=== PATIENT | male | born 1965 | race Caucasian/White ===

== ENCOUNTER 2018-05-22 13:57 | Inpatient (IN) | payer OTHER ==
[~2018-05-22] VITALS: Ht 177.8 cm; Wt 99.8 kg
[~2018-05-22 13:57] MED LIST: NO MEDS
--- NOTE | 2018-05-22 13:57 | NUR ---
PT BIBA ALS TO BED 10
[2018-05-22 14:01] VITALS: BP 96/59
--- NOTE | 2018-05-22 14:13 | NUR ---
PATIENT PRESENTS TO ED WITH INTERMITTENT SUBSTERNAL CHEST PRESSURE RADIATING TO BACK X 3 DAYS----WORSEN TODAY EXACERBATED BY ACTIVITY----OXYGEN DEPENDENT 3 L NC, SINGLE LUMEN CENTRAL LINE LEFT CHEST ON A DOBUTAMINE PUMP INFUSION AROUND THE CLOCK. ----RAN OUT OF OXYGEN AT HOME AND STATED DEFIB KICKED 3 DAYS AGO PER PT.DENIES N/V/D; SKIN IS PINK/WARM/DRY; AAOX4 WITH EVEN AND STEADY GAIT; LUNGS CLEAR BL; HR EVEN AND REGULAR; PT DENIES ANY FEVER, OR COUGH AT THIS TIME; PATIENT STATES PAIN OF 5/10 AT THIS TIME; VSS; PATIENT POSITIONED FOR COMFORT; HOB ELEVATED; BEDRAILS UP X2; BED DOWN. ER MD MADE AWARE OF PT STATUS.
[2018-05-22] MEDS ORDERED: NITR0.4T2 SL (14:15)
[2018-05-22] MEDS ORDERED: AMIO100T PO (14:15)
[2018-05-22] MEDS ORDERED: GABA100C PO (14:15)
[2018-05-22] MEDS ORDERED: VITD1000 PO (14:15)
[2018-05-22] MEDS ORDERED: ZAR2.5 PO (14:15)
[2018-05-22] MEDS ORDERED: BUS5 PO (14:15)
[2018-05-22] MEDS ORDERED: POTA20TE15 PO (14:15)
[2018-05-22] MEDS ORDERED: ACET-8386 PO (14:15)
[2018-05-22] MEDS ORDERED: RIVA20TA PO (14:15)
[2018-05-22] MEDS ORDERED: OMEP20TC12 PO (14:15)
--- NOTE | 2018-05-22 14:28 | NUR ---
X-Ray at bedside.
[2018-05-22 14:40] LABS: BASOPHILS # (AUTO) 0.1 K/uL (0.00-0.22); BASOPHILS % (AUTO) 1.3 % (0.0-2.0); EOSINOPHILS # (AUTO) 0.2 K/uL (0-0.4); EOSINOPHILS % (AUTO) 2.7 % (0.0-4.0); HEMATOCRIT 35.1 % (36-52); HEMOGLOBIN 10.5 g/dL (12.0-18.0); LYMPHOCYTES # (AUTO) 0.8 K/uL (2.0-11.5); LYMPHOCYTES % (AUTO) 12.8 % (20.5-51.1); MEAN CORPUSCULAR HEMOGLOBIN 23 pg (27-31); MEAN CORPUSCULAR HGB CONC 30 g/dL (33-37); MEAN CORPUSCULAR VOLUME 76.3 fL (80-94); MONOCYTES # (AUTO) 0.4 K/uL (0.8-1.0); MONOCYTES % (AUTO) 6.3 % (1.7-9.3); NEUTROPHILS % (AUTO) 76.9 % (42.2-75.2); PLATELET COUNT (AUTO) 176 K/uL (140-450); WHITE BLOOD COUNT (AUTO) 6.5 K/uL (4.8-10.8)
[2018-05-22 14:48] LABS: ANION GAP 13.8 (8-16); CARBON DIOXIDE 25.3 mmol/L (21-32); CREATININE 1.9 mg/dL (0.7-1.3); POTASSIUM 5.1 mmol/L (3.5-5.1)
[2018-05-22 14:51] LABS: PROTHROMBIN TIME 22.6 secs (10.8-13.4)
[2018-05-22 14:54] LABS: ALBUMIN 3.4 g/dL (3.4-5.0); TOTAL BILIRUBIN 0.6 mg/dL (0.0-1.0)
[2018-05-22] MEDS ORDERED: HYDROcodone/APAP 10/325 MG 1 TAB TAB PO STA (15:52)
--- NOTE | 2018-05-22 16:00 | NUR ---
SPOKE WITH PT---PT GROWING UPSET AND WANTED TO LEAVE AMA PT AGREED TO STAY FOR FURTHER TREATMENT---PT AWARE OF ABNORMAL LAB VALUES PROVIDED PT WITH ICE REQUESTED BY HIM
[2018-05-22] MEDS ORDERED: NACL 0.9% 1,000 ML IV SCH (16:35)
[2018-05-22] MEDS ORDERED: ONDANSETRON 4 MG/2 ML VIAL IM/IVP PRN (16:35)
[2018-05-22] MEDS ORDERED: HYDROcodone/APAP 5/325 MG 1 TAB TAB PO PRN (16:35)
[2018-05-22] MEDS ORDERED: ACETAMINOPHEN 325 MG TAB PO PRN (16:35)
[2018-05-22] MEDS ORDERED: LORazepam 2 MG/ML VIAL IM/IVP PRN (16:35)
[2018-05-22] MEDS ORDERED: DOCUSATE SODIUM 100 MG GELCAP PO PRN (16:35)
[2018-05-22] MEDS ORDERED: ZOLPIDEM 5 MG TAB PO PRN (16:35)
[2018-05-22] MEDS ORDERED: MORPHINE SULFATE 2 MG/ML SYR IVP PRN (17:15)
[2018-05-22 17:20] LABS: APPEARANCE,URINE CLEAR (CLEAR); BILIRUBIN,URINE NEGATIVE (NEGATIVE); BLOOD, URINE NEGATIVE (NEGATIVE); COLOR,URINE YELLOW (YELLOW); LEUKOCYTE ESTERASE ,URINE NEGATIVE (NEGATIVE); NITRITE, URINE NEGATIVE (NEGATIVE); UGLUCOSE NEGATIVE (NEGATIVE)
[2018-05-22] MEDS ORDERED: ALBUTEROL SULFATE/IPRATROPIU 3 ML SOL IH PRN (17:20)
--- NOTE | 2018-05-22 17:25 | NUR ---
RECEIVED PATIENT FROM ED. AAO X 4. SKIN IS INTACT. ON 2L NC. HEART RHYTHM IS 100% PACED. PATIENT HAS DOBUTAMINE CONTINUOUSLY RUNNING THROUGH CENTRAL LINE ON LEFT ANTERIOR CHEST, SINGLE LUMEN. LUNGS CTA/SLIGHTLY COARSE IN ALL GARCIA. NO EDEMA NOTED. WILL OBTAIN IV ACCESS. PATIENT IS SLIGHTLY DIAPHORETIC. PATIENT COMPLAINING OF CHEST PAIN. 05/25. WILL ADMINISTER MORPHINE PER MD ORDERS. ALL SAFETY MEASURES IN PLACE. WILL CONTINUE TO MONITOR.
[2018-05-22 17:32] LABS: BARBITURATE, URINE NEG. ng/ml (NEG <=200); BENZODIAZEPINE, URINE NEG. ng/mL (NEG <=200); CANNABINOID, URINE NEG. ng/mL (NEG <=50); COCAINE, URINE NEG. ng/mL (NEG <=300); OPIATE, URINE POS. ng/mL (NEG <=2000); PHENCYCLIDINE SCREEN,URINE NEG. ng/mL (NEG <=25)
--- NOTE | 2018-05-22 17:37 | NUR ---
Pt report given to CHRISTAL CLEMENTS. Transfer of care at this time TO TELE ROOM 106/B
[2018-05-22] MEDS ORDERED: NITROGLYCERIN 0.4 MG TAB SL PRN (17:50)
[2018-05-22] MEDS ORDERED: MORPHINE SULFATE 2 MG/ML SYR ONE (18:41)
[2018-05-22 18:54] VITALS: BP 93/69
[2018-05-22 19:02] LABS: FREE T4 (FREE THYROXINE) 1.64 ng/dL (0.76-1.46); MAGNESIUM 2.2 mg/dL (1.8-2.4); PHOSPHORUS 4.4 mg/dL (2.5-4.9); THYROID STIMULATING HORMONE 1.3 uIU/mL (0.34-3.74)
--- NOTE | 2018-05-22 19:25 | NUR ---
GAVE REPORT TO SURGICAL NURSE PRACTITIONER RN FOR CONTINUITY OF CARE. PATIENT IS IN STABLE CONDITION.
--- NOTE | 2018-05-22 19:26 | NUR ---
RECEIVED REPORT ON PT FROM AM NURSE, PT IS ON TELE MONITOR.-100% PACED. AWAKE,ALERT AND ORIENTED X4. PT IS COOL AND CLAMMY ,PERSPIRING . HE SAID BECAUSE OF PAIN. JUST MEDICATED FOR PAIN BY AM NURSE. . IV ACCESS ON THE LT HAND G#22. VITAL SIGNS TAKEN. LATEST BP100/65, VA- 109,R-22,TEMP-97.1, O2 SAT 95% ON O22L/NC. PLAN OF CARE DISCUSSED AND VERBALIZED UNDERSTANDING. CALL LIGHT AND URINAL WITHIN EASY REACH. WILL CONTINUE TO MONITOR.
[2018-05-22 19:45] VITALS: BP 100/65
[2018-05-22] MEDS: FUROSEMIDE 40 MG/4 ML VIAL IVP SCH (19:45)
--- NOTE | 2018-05-22 19:50 | NUR ---
PT STILL COLD AND CLAMMY, PERSPIRING AND HE SAID HE DOESN'T FEEL GOOD. PAGED DR. CASTELLANOS . MADE HIM AWARE. CAME AND CHECKED ON PT. STILL NEED TO GIVE LASIX ,BUT IV ACCIDENTALLY PULLED OUT. TO REORDER LASIX X1.
[2018-05-22] MEDS ORDERED: FUROSEMIDE 20 MG/2 ML VIAL IVP SCH (20:00)
--- NOTE | 2018-05-22 20:00 | NUR ---
UNABLE TO START IV ACCESS .ER NURSE CAME TO TRY TO START IV ACCESS.
[2018-05-22] MEDS: ATORVASTATIN 20 MG TAB PO SCH (20:02)
[2018-05-22] MEDS: busPIRone 5 MG TAB PO SCH (20:03)
[2018-05-22] MEDS: METOPROLOL 25 MG TAB PO SCH (20:07)
[2018-05-22] MEDS: ALBUTEROL SULFATE/IPRATROPIU 3 ML SOL IH SCH (20:25)
--- NOTE | 2018-05-22 20:33 | NUR ---
LASIX 20 MG IVP GIVEN ORDERED ON IV LT FA G 18 THAT ER NURSE STARTED. BUT NEED TO START A NEW ONE ON RT HAND G#22 FOR THE PREVIOUS ONE NOT GOOD ENOUGH.
[2018-05-22] MEDS ORDERED: POTASSIUM CHLORIDE 40 MEQ PO SCH (21:00)
[2018-05-22 21:08] VITALS: BP 94/53
--- NOTE | 2018-05-22 22:32 | NUR ---
PT C/O INDIGESTION. INFORMED .
--- NOTE | 2018-05-22 23:45 | NUR ---
DR. CAICEDO,RESIDENT MADE AWARE THAT PT HAS HX; SLEEP APNEA AND HAS MACHINE AT HOME THAT HE USED AT NIGHT.
[2018-05-22 23:48] VITALS: BP 99/61
[2018-05-23] MEDS ORDERED: ALBUMIN HUMAN 25% 100 ML IV SCH
--- NOTE | 2018-05-23 01:33 | NUR ---
PT ASLEEP IN BED. NO S/SX OF DISTRESS. WILL CONTINUE TO MONITOR.
--- NOTE | 2018-05-23 03:27 | NUR ---
PT ASLEEP IN BED. NO SIGNS OF DISTRESS. WILL CONTINUE TO MONITOR.
[2018-05-23 04:00] VITALS: BP 98/58
--- NOTE | 2018-05-23 05:20 | NUR ---
NO CHANGE IN CONDITION. PT IS STABLE, ALL NEEDS ARE MET AT THIS TIME. WILL CONTINUE TO MONITOR.
--- NOTE | 2018-05-23 06:11 | NUR ---
CALLED [facility] TO GET MEDICAL RECORDS FAX # BUT DIRECTOR OF NEIGHBORHOOD SERVICE C[facility] JUST GAVE THE #OFFICE [phone] . DIRECTOR OF [facility]HB[facility]ICE [facility] SAID THE OFFICE IS CLOSED AND WILL OPEN [place]. WILL ENDORSE TO AM NURSE.
--- NOTE | 2018-05-23 07:05 | NUR ---
ENDORSED PT TO DAY SHIFT NURSE FOR CONTINUITY OF CARE. PT IN STABLE CONDITION.
--- NOTE | 2018-05-23 07:07 | NUR ---
RECEIVED REPORT FROM HISTORY TUTOR RN. PATIENT IS IN STABLE CONDITION. AAO X4. COMPLAINING OF TOLERABLE PAIN IN LOWER BACK. HEART RHYTHM IS REGULAR. LUNGS CTA IN ALL GARCIA. SATURATING WELL ON 4L NC. NO EDEMA NOTED. BOWEL SOUNDS PRESENT IN ALL QUADRANTS. PT HAS CONTINUOUS DOPAMINE INFUSING THROUGH SINGLE LUMEN CENTRAL LINE ON LEFT CHEST. IV SITE INFILTRATED, WILL INSERT NEW IV. ALL SAFETY MEASURES IN PLACE. WILL CONTINUE TO MONITOR PT.
[2018-05-23] MEDS: ALBUTEROL SULFATE/IPRATROPIU 3 ML SOL IH SCH ×3 (07:15→19:53)
[2018-05-23 08:00] VITALS: BP 97/56
[2018-05-23] MEDS ORDERED: VITAMIN D 400 IU TAB PO SCH (09:00)
[2018-05-23] MEDS ORDERED: AMIODARONE 200 MG TAB PO SCH (09:00)
[2018-05-23] MEDS ORDERED: PANTOPRAZOLE 40 MG TABEC PO SCH ×3 (09:00)
[2018-05-23] MEDS: METOPROLOL 25 MG TAB PO SCH ×2 (09:00→20:55)
[2018-05-23] MEDS ORDERED: NON-FORMULARY ITEM (Omeprazole (Omeprazole) 40 MG) PO SCH (09:00)
[2018-05-23] MEDS ORDERED: AMIODARONE HCL 100 MG PO SCH (09:00)
[2018-05-23] MEDS ORDERED: LISINOPRIL 5 MG TAB PO SCH (09:00)
[2018-05-23] MEDS ORDERED: ASPIRIN 81 MG TAB.CHEW PO SCH (09:00)
[2018-05-23 09:15] LABS: BASOPHILS % (AUTO) 0.5 % (0.0-2.0); EOSINOPHILS % (AUTO) 0.4 % (0.0-4.0); HEMATOCRIT 34.6 % (36-52); HEMOGLOBIN 10.6 g/dL (12.0-18.0); LYMPHOCYTES # (AUTO) 0.3 K/uL (2.0-11.5); MEAN CORPUSCULAR HEMOGLOBIN 23 pg (27-31); MEAN CORPUSCULAR HGB CONC 31 g/dL (33-37); MEAN CORPUSCULAR VOLUME 75.7 fL (80-94); MONOCYTES # (AUTO) 0.3 K/uL (0.8-1.0); MONOCYTES % (AUTO) 3.2 % (1.7-9.3); NEUTROPHILS # (AUTO) 8.1 K/uL (1.8-7.7); PLATELET COUNT (AUTO) 176 K/uL (140-450); RED BLOOD CELL COUNT(AUTO) 4.57 MIL/uL (4.20-6.10); RED CELL DISTRIBUTION WIDTH 20.3 % (11.6-13.7); WHITE BLOOD COUNT (AUTO) 8.8 K/uL (4.8-10.8)
[2018-05-23] MEDS: busPIRone 5 MG TAB PO SCH (09:41)
[2018-05-23] MEDS: GABAPENTIN 100 MG CAP PO SCH ×3 (09:42→16:39)
--- NOTE | 2018-05-23 09:42 | NUR ---
SCHEDULED MEDICATIONS GIVEN AT THIS TIME. PATIENT IS IN STABLE CONDITION. WILL CONTINUE TO MONITOR.
[2018-05-23 10:07] LABS: ANION GAP 15.3 (8-16); CREATININE 1.9 mg/dL (0.7-1.3); POTASSIUM 4.3 mmol/L (3.5-5.1)
[2018-05-23 10:18] LABS: MAGNESIUM 1.8 mg/dL (1.8-2.4); PHOSPHORUS 4.1 mg/dL (2.5-4.9)
[2018-05-23 10:22] LABS: CHOL/HDL RATIO 4.2 (1-4.5)
--- NOTE | 2018-05-23 10:34 | NUR ---
PATIENT COMPLAINING OF CONSTIPATION AND STRAINING DURING BOWEL MOVEMENTS. PT STATES COLACE IS INEFFECTIVE. MD MADE AWARE. WILL CONTINUE TO MONITOR.
[2018-05-23 11:02] LABS: LYMPHOCYTES % (AUTO) 3.4 % (20.5-51.1); NEUTROPHILS % (AUTO) 92.5 % (42.2-75.2)
[2018-05-23] MEDS: FUROSEMIDE 40 MG/4 ML VIAL IVP SCH (11:12)
[2018-05-23 12:00] VITALS: BP 100/63
--- NOTE | 2018-05-23 12:41 | NUR ---
SCHEDULED MEDICATION ADMINISTERED PER MD ORDERS. PATIENT IS RESTING IN BED, WATCHING TV. COMPLAINING OF SOME BACK PAIN. WILL APPLY K-PAD WHEN AVAILABLE.
[2018-05-23] MEDS ORDERED: BISACODYL 10 MG SUPP RC SCH (13:25)
[2018-05-23] MEDS ORDERED: SODIUM PHOSPHATE 118 ML ENEM RC PRN (13:25)
[2018-05-23] MEDS ORDERED: COMMUNICATION ORDER MC SCH (13:35)
--- NOTE | 2018-05-23 14:29 | NUR ---
K-PAD APPLIED FOR BACK PAIN. SUPPOSITORY ADMINISTERED PER MD ORDERS. WILL CONTINUE TO MONITOR.
[2018-05-23] MEDS ORDERED: HYDROcodone/APAP 10/325 MG 1 TAB TAB PO PRN (15:00)
--- NOTE | 2018-05-23 15:15 | NUR ---
PATIENT HAD SMALL BM. WILL SEND OCCULT STOOL SAMPLES TO LAB.
[2018-05-23 16:00] VITALS: BP 102/60
--- NOTE | 2018-05-23 16:39 | NUR ---
SCHEDULED MEDICATIONS GIVEN PER MD ORDERS. PATIENT IS SLEEPING IN BED, NO COMPLAINTS OF PAIN. AROUSABLE BY VOICE. WILL CONTINUE TO MONITOR.
[2018-05-23] MEDS ORDERED: RIVAROXABAN 10 MG TAB PO SCH (17:30)
--- NOTE | 2018-05-23 18:43 | NUR ---
PATIENT COMPLAINING OF 6/10 BACK PAIN. ADMINISTERED NORCO PER MD ORDERS. WILL CONTINUE TO MONITOR.
--- NOTE | 2018-05-23 19:29 | NUR ---
ENDORSED PLAN OF CARE TO SALES ACCOUNT MANAGER RN. PATIENT IS IN STABLE CONDITION.
--- NOTE | 2018-05-23 19:30 | NUR ---
RECEIVED REPORT AT BEDSIDE FOR CONTINUITY OF CARE. PT AAOX4. PT HAS SOB AND TROUBLE BREATHING ALSO COMPLAINTS OF PAIN AND IS REQUESTING FLEXERIL AND DEPRESSION MED. RT CAME IN AND WAS AWARE HE NEEDS TO BE ON BIPAP. PT HAD CHF AND WAS ON 4L NC BUT SWITCH TO CPAP. IV NOTED L WRIST 22G SALINE LOCK. HAS LEFT UPPER CHEST ICD INFUSING DOBUTAMINE. EXPECTED TO RUN OUT AT 1145 SO ENDORSE TO MORNING SHIFT. PT ALSO HAS KPAD FOR BACK PAIN. PLAN OF SOCIAL SERVICE IS TO TRANSFER TO [place]. BED LOWERED CALL LIGHT WITHIN REACH WILL CONTINUE TO MONITOR.
--- NOTE | 2018-05-23 19:50 | NUR ---
PT FOUND IN DISTRESS C/O PAIN AND DISCOMFORT, O2 DESATURATED INTO 70'S, PT PLACED ON CPAP WITH CPAP NOC HOME ORDER, PT SHOWED RELIEF AND O2 SAT BACK TO 92%, BESSIE CLEMENTS AND DR CASTELLANOS AWARE, WILL CONT TO MONITOR.
[2018-05-23] MEDS ORDERED: CYCLOBENZAPRINE 10 MG TAB PO SCH (19:55)
[2018-05-23 20:00] VITALS: BP 86/49
[2018-05-23] MEDS ORDERED: CYCLOBENZAPRINE 10 MG TAB PO PRN (20:32)
[2018-05-23] MEDS: ATORVASTATIN 20 MG TAB PO SCH (20:54)
[2018-05-23] MEDS ORDERED: busPIRone 5 MG TAB PO SCH (21:00)
[2018-05-23] MEDS ORDERED: POTASSIUM CHLORIDE 10 MEQ TABER PO SCH (21:00)
--- NOTE | 2018-05-23 23:27 | NUR ---
PT COMPLAINING OF DRY MOUTH, TRIED PT IN BIPAP MODE, PT STATED HE WAS UNCOMFORTABLE AND DID NOT TOLERATE, MENTIONED THAT HOME CPAP WOULD ADJUST IN LEVELS, HOSPITAL CPAP DOES NOT HAVE THOSE CAPABILITIES, PT BACK ON CPAP MODE, WILL CONT TO MONITOR.
[2018-05-24] VITALS: BP 85/61
--- NOTE | 2018-05-24 01:20 | NUR ---
PT REQUEST TO HAVE CPAP LEVELS CHANGED SAID HE IS DONT FEELING WELL CALLED RT. RT AT BEDSIDE.
--- NOTE | 2018-05-24 01:44 | NUR ---
PT SLEEPING NO SOB NO S/S OF DISTRESS WILL CONTINUE TO MONITOR.
[2018-05-24 04:00] VITALS: BP 93/63
[2018-05-24] MEDS: ALBUTEROL SULFATE/IPRATROPIU 3 ML SOL IH SCH (06:35)
--- NOTE | 2018-05-24 06:35 | NUR ---
REC'D PT ON VISION BIPAP SETTINGS 10/2 RR12 FIO2 40% ALARMS ON AND AUDIBLE AND AMBU BAG AT SIDE OF BIPAP AND BIPAP IS PLUGGED INTO REDOUT, I\L TX GIVEN WITH DUONEB 3ML WITH NO ADVERSE REACTION POST TX B\S CLEAR AND DIMINISHED BILATERALLY, PT IS REALLY AGITATED WITH STAFF CALLING NAMES KEEPS TAKING MASK OFF STATING HE CANT BREATH I KEEP ASKIN HIM TO PUT MASK BACK ON AND HE THREW MASK AT RT HITTING RT KNAPP IN CHEST WITH MASK..
[2018-05-24 07:09] LABS: BASOPHILS % (AUTO) 0.3 % (0.0-2.0); EOSINOPHILS % (AUTO) 0.2 % (0.0-4.0); HEMOGLOBIN 11.3 g/dL (12.0-18.0); LYMPHOCYTES # (AUTO) 0.4 K/uL (2.0-11.5); LYMPHOCYTES % (AUTO) 3.4 % (20.5-51.1); MEAN CORPUSCULAR HEMOGLOBIN 23 pg (27-31); MEAN CORPUSCULAR HGB CONC 31 g/dL (33-37); MEAN CORPUSCULAR VOLUME 76.4 fL (80-94); MONOCYTES # (AUTO) 0.4 K/uL (0.8-1.0); MONOCYTES % (AUTO) 3.4 % (1.7-9.3); NEUTROPHILS # (AUTO) 11.4 K/uL (1.8-7.7); NEUTROPHILS % (AUTO) 92.7 % (42.2-75.2); PLATELET COUNT (AUTO) 194 K/uL (140-450); RED BLOOD CELL COUNT(AUTO) 4.84 MIL/uL (4.20-6.10); WHITE BLOOD COUNT (AUTO) 12.3 K/uL (4.8-10.8)
--- NOTE | 2018-05-24 07:24 | NUR ---
CHECKED PT BEFORE SHIFT CHANGE, PT C/O SHORTNESS OF BREATH, O2 SATS BETWEEN 88-90%, CALLED RT, PT TOOK OFF MASK, EXPLAINED TO PT THIS IS GOOD FOR HIS O2 SATURATION. PT YELLING TO ME AND RT AND THROWING MASK TO US.
--- NOTE | 2018-05-24 07:24 | NUR ---
CALLED BACK TO ROOM TO CHECK PT. PT STATES HE IS IN PAIN YELLING AT STAFF ONCE AGAIN THROWING MASK AT RT STARR HILARIO IN ROOM AT THIS TIME.
--- NOTE | 2018-05-24 07:33 | NUR ---
ENDORSED REPORT TO DAYSHIFT NURSE AT BEDSIDE FOR CONTINUITY OF CARE.
--- NOTE | 2018-05-24 07:35 | NUR ---
RECEIVED REPORT FROM BESSIE, MONITOR SHOWS PACED RHYTHM 120S, AWAKE, ALERT,AGITATED. ABLE TO FOLLOW COMMANDS.PT ON BIPAP, C/O SHORTNESS OF BREATH, PT TOOK OFF MASK AT TIMES. PT HAS PACE MAKER TO RIGHT UPPER CHEST. PT ALSO HAS ONE SINGLE LUMEN CATH TO LEFT CHEST RUNNING DOBUTAMINE, PER BESSIE DOBUTAMINE IS PT SELF -CONTROL HOME MEDICATION. PT ALSO HAS IV TO LEFT FOREARM. PT C/O PAIN TO LOWER BACK, COMFORTED PT TO GIVE HIM PAIN MEDICATION. PT STATED " DON'T GIVE ME FUCKING NORCO, I NEED STRONGER MEDICATION" GENERALIZED WEAKNESS NOTED, VITALS CHECKED BP 85/49, HR 125, PACED RHYTHM, O2 SATS 92%, RR 30, HOB ELEVATED 30 DEGREES WITH LOW BED POSITION. WILL NOTIFY MD FOR PAIN MEDICATION AND VITALS.
--- NOTE | 2018-05-24 07:38 | NUR ---
CALLED RESIDENT CELLPHONE, ANSWERED, NOTIFIED HIM PT VITALS AND TOLD HIM PT NEEDS PAIN MEDICATION BUT PT DOES NOT WANT NORCO, PT NEEDS STRONGER MEDICATION.
[2018-05-24] MEDS ORDERED: MAGNESIUM OXIDE 400 MG TAB PO ONE (07:40)
--- NOTE | 2018-05-24 07:45 | NUR ---
WENT IN TO PT'S ROOM AND TOLD PT " I CALLED DOCTOR FOR PAIN MEDICATION ALREADY". RECHECKED VITALS SHOWS BP 75/31, HR 120S, O2 SATS 90%, NOTIFIED [facility] MARIYA HINES AND CHARGE NURSE ZAC. FLORA CAME TO BEDSIDE AND STATED SHE WILL NOTIFY DOCTOR.
[2018-05-24 07:56] LABS: ANION GAP 16.2 (8-16); CARBON DIOXIDE 24.8 mmol/L (21-32); CREATININE 2.3 mg/dL (0.7-1.3)
--- NOTE | 2018-05-24 07:56 | NUR ---
DR. RIBEIRO IN TO ASSESS PT, RECHECKED VITALS BP 94/31, HR 120, O2 SATS 92%, PER DR. RIBEIRO, PT WILL BE TRANSFERRED TO ICU FOR CLOSE MONITORING.
[2018-05-24] MEDS ORDERED: NACL 0.9% 500 ML IV SCH (08:00)
[2018-05-24 08:01] LABS: PROTHROMBIN TIME 33.9 secs (10.8-13.4)
[2018-05-24] MEDS ORDERED: NACL 0.9% 500 ML IV ONE (08:05)
[2018-05-24] MEDS ORDERED: MORPHINE SULFATE 2 MG/ML SYR IVP SCH (08:15)
--- NOTE | 2018-05-24 08:15 | NUR ---
INFORMED PT THAT HE WILL BE TRANSFERRED TO ICU ROOM 3 FOR CLOSE MONITORING. PT VERBALIZED UNDERSTANDING. PT ALERT AT THIS TIME AND WAS ABLE TO CALL AND TALKED TO ONE OF HIS FAMILY MEMBER OVER THE PHONE THAT HE WILL BE TRANSFERRED TO ICU.
--- NOTE | 2018-05-24 08:20 | NUR ---
TRANSFERRED PT TO ICU BED 3, ACCOMPANIED BY RT, CHARGE NURSE. REPORT GIVEN TO CEDRIC CLEMENTS. PT BP 102/57, HR 125. O2 SATS 91%.
--- NOTE | 2018-05-24 08:20 | NUR ---
RECEIVED PT FROM [facility], OBTAINED REPORT FROM STARR HILARIO AT BEDSIDE, PT IS AAOX4, ABLE TO FOLLOW COMMANDS AND MAKE NEEDS KNOWN, SOB AND LABORED BREATHING NOTED, HYPERVENTILATED AND RESTLESSNESS, RT AT BEDSIDE, STATED GENERALIZED PAIN, 08/25. BP 102/57, HR 122, RR 48, O2 SAT 90%, TEMP 97.0F, PACEMAKER TO RIGHT UPPER CHEST NOTED, PORT CATH TO LEFT CHEST NOTED AND RUNNING DOPAMINE WITH PUMP AT 5MCG/KG/MIN. INCONTINENT WITH B&B'S, GENERALIZED WEAKNESS TO ALL EXTREMITIES NOTED, IV SITE TO LEFT FOREARM, OCCLUDED. HOB ELEVATED, SAFETY MEASURE IN PLACE, CALL LIGHT WITHIN REACH, WILL CONTINUE TO MONITOR.
--- NOTE | 2018-05-24 08:20 | NUR ---
PT TRANSFERRED TO ICU 3 THEN PLACED BACK ON BIPAP AND ABG WAS DRAWN ON RR BY FAVOR MAKER Penelope CAVANAUGH PT IS STILL VERY AGITATED PULLING BIPAP MASK OFF, RT ARIA KEEPS REPLACING THE MASK ASKIN PT TO PLEASE KEEP MASK AND ABG RESULTS WERE GIVEN TO WITH CHANGES MADE TO BIPAP. NEW SETTING 14\6 RR 10 ITIME 1:2 RISE TIME 0.4, NOT ABDIFATAH RICARDO AT BESIDE INSERTING CENTRAL LINE IN PT.
--- NOTE | 2018-05-24 08:48 | NUR ---
V TACH NOTED ON THE MONITOR. BP 102/57. IN 127. RR 46. [address] VELA AND GROUP ROUNDING ON THE PATIENT, AWARE OF V TACH EPISODES.
[2018-05-24] MEDS ORDERED: PATIENTS OWN INJECTABLE IV SCH (09:00)
[2018-05-24] MEDS ORDERED: MAGNESIUM OXIDE 400 MG TAB PO SCH (09:00)
[2018-05-24] MEDS ORDERED: METOLAZONE 2.5 MG TAB PO SCH (09:00)
--- NOTE | 2018-05-24 09:00 | NUR ---
DR. ZHAO FROM ED CAME AND SEEN PATIENT.
--- NOTE | 2018-05-24 09:15 | NUR ---
DR. Joaquina STERLING IN, SEEN PATIENT. WILL FOLLOW UP WITH NEW ORDERS.
[2018-05-24] MEDS ORDERED: LORazepam 2 MG/ML VIAL ONE ×2 (09:30→09:53)
[2018-05-24] MEDS ORDERED: LORazepam 2 MG/ML VIAL IM SCH (09:30)
[2018-05-24] MEDS ORDERED: AMIODARONE 150 MG in DEXTROSE 5% 100 ML IV SCH (09:30)
--- NOTE | 2018-05-24 09:30 | NUR ---
CONSENT FOR CENTRAL LINE SIGNED BY THE PATIENT HIMSELF
--- NOTE | 2018-05-24 09:36 | NUR ---
CM NOTE RECEIVED ORDER TO TRANSFER TO [facility] FOR HIGHER LEVEL OF CARE. FAXED PACKET TO [facility] [phone] # [phone] INCLUDING THE NUMBER TO OUR NURSING STATION WHERE PATIENT IS AND OUR DR'S NUMBER FOR DOCTOR TO DOCTOR REPORT IF NEEDED. DR. BOOKER AND CEDRIC CLEMENTS AWARE.
[2018-05-24 09:37] LABS: MAGNESIUM 1.7 mg/dL (1.8-2.4); PHOSPHORUS 4.3 mg/dL (2.5-4.9)
--- NOTE | 2018-05-24 09:45 | NUR ---
RESIDENT PHYSICIANS, DR. MAN AND DR. BOOKER AT BEDSIDE PREPARING TO PLACE A RIGHT IJ CENTRAL LINE.
--- NOTE | 2018-05-24 09:47 | NUR ---
BIPAP CHECK, PT IS STILL VERY AGITATED TAKING MASK OFF YELLING HE CANT BREATH DR. RICARDO AT BEDSIDE TRYING TO INSERT CENTRAL LINE
[2018-05-24] MEDS ORDERED: LORazepam 2 MG/ML VIAL IM/IVP SCH (10:00)
[2018-05-24] MEDS ORDERED: AMIODARONE 450 MG in DEXTROSE 5% 250 ML IV SCH (10:00)
--- NOTE | 2018-05-24 10:00 | NUR ---
ATIVAN 1 MG IM GIVEN ORDERED. WASTED 1 MG, WITNESSED BY STARR COLLADO.
--- NOTE | 2018-05-24 10:05 | NUR ---
BRADYCARDIA NOTED ON MONITOR. NO PULSE PALPATED. NO PULSE PER DOPPLER NOTED WELL. CODE BLUE CALLED.
--- NOTE | 2018-05-24 10:08 | NUR ---
CALLED TO ICU 3 FOR CODE BLUE CPR AND ALCS DRUGS WERE GIVEN, AT 1013 SAL SHERMAN FROM ER INTUBATED PT WITH 7.0 ET TUBE SECURED WITH ANCHOR FAST AT 22 CM MIDLINE CPR AND ACLS STILL BEING GIVEN AT 1031 DR. SELLERS ENDED THE CODE
--- NOTE | 2018-05-24 10:15 | NUR ---
PT'S FAMILY NOTIFIED PT'S CONDITION, DR. SELLERS SPOKE TO THE ON THE PHONE.
--- NOTE | 2018-05-24 10:19 | NUR ---
PATIENT HAS BEEN SCREENED AND CATEGORIZED MODERATE NUTRITION RISK. PATIENT WILL BE SEEN WITHIN 3-5 DAYS OF ADMISSION. 05/26/18 05/28/[address]
--- NOTE | 2018-05-24 10:31 | NUR ---
DR. SELLERS PRONOUNCED AT 1031 DUE TO CARDIAC ARREST. Addendum: 05/24/18 at 1314 by Dalila Monzon RN ER DR. HUANG AT BEDSIDE AGREED. Addendum: 05/24/18 at 1315 by Dalila Monzon RN DR. VELA NOTIFIED THE OF PATIENT, FRAMING CARPENTER AT BEDSIDE.
--- NOTE | 2018-05-24 11:00 | NUR ---
PT'S AND FAMILY MEMBERS CAME IN, DR. SELLERS AND DR. RICARDO EXPLAINED THE REASON OF THE . PT'S VERBALIZED UNDERSTANDING.
--- NOTE | 2018-05-24 11:15 | NUR ---
Pipe Jeeper Notes: I meet with Patient's Paty Clifford at bedside. Patient's is kinyarwanda speaking only. I comfort Patient's and provided her with resources and information about dealing with the loss of a love one, as well a lis to counseling services around her area and at last a mortuary list. I discuss in detail about the process and limitations with time to make arrangements, she stated that she did not had anything prepare and will be meeting with patient's family to go about the arrangements for his and services. Patient's stated that she will be making some calls to the family and mortuary's to get information and will be returning with patient's family to finalized plans and sign forms to release the body to mortuary of their choice. She thanked me for the assistance and left the hospital to talk to patient's side of the family.
--- NOTE | 2018-05-24 11:30 | NUR ---
[facility] CALLED BACK WITH CASE #[id number], SPOKED TO CHAD GOLD THAT PT WILL BE ON [employer]'[facility] CASE.
--- NOTE | 2018-05-24 12:00 | NUR ---
SPOKE TO PT'S ABOUT THE MORTUARY, SHE SAID WILL LET US KNOW LILIA.
--- NOTE | 2018-05-24 12:35 | NUR ---
SPOKED TO AUTO BODY REPAIR ESTIMATOR, MELBA SANDERSON, PT'S BODY RELEASED BY AUTO BODY REPAIR ESTIMATOR, CASE # [id number].
--- NOTE | 2018-05-24 13:35 | NUR ---
Patient Registration Clerk Notes: I met with patient's brother and Paty and discuss patient's mortuary of their choice. Patient's stated that she has already discuss and decided to have Patient's brother [facility] of Choice in [facility] to come and scrap picker Patient's body and that she will be signing the forms to release patient and family will be gathering to discuss all arrangements tomorrow 05/25/18 at 11:00am in the mortuary. I thanked her for the information and direct them to ICU Nurse to sign all documentation needed. She thanked me again for the assistance.
--- NOTE | 2018-05-24 16:00 | NUR ---
PT'S GAVE SIGNED THE BODY RELEASE FORM, AND GAVE US THE MORTUARY NAME AND NUMBER.
--- NOTE | 2018-05-24 16:20 | NUR ---
INFORMED [facility] TO METAL HANDLER THE DECEDENT.
--- NOTE | 2018-05-24 16:47 | NUR ---
THE [facility] PICKED UP BY [facility]
[2018-05-25 06:21] LABS: FOLIC ACID 12.2 ng/mL (>3.0)
[2018-05-25 15:14] LABS: T4 (THYROXINE) 10.2 ug/dL (4.5-12.0)
== END 2018-05-24 16:47 | disposition expired | DRG 205 ==
LOC: MED 13:57 → MTU 16:35 → MIC 05-24 08:59
PROVIDERS: ADMIT General Practice; ATTEND General Practice
PROC: 5A09357 Assistance with Respiratory Ventilation, Less than 24 Consecutive Hours, Continuous Positive Airway Pressure (ICD-10-PCS; principal; 2018-05-23)
PROC: 5A12012 Performance of Cardiac Output, Single, Manual (ICD-10-PCS; 2018-05-24)
PROC: 0BH17EZ Insertion of Endotracheal Airway into Trachea, Via Natural or Artificial Opening (ICD-10-PCS; 2018-05-24)
DX: M94.0 Chondrocostal junction syndrome [Tietze] (principal); I50.43 Acute on chronic combined systolic (congestive) and diastolic (congestive) heart failure; N17.0 Acute kidney failure with tubular necrosis; J96.20 Acute and chronic respiratory failure, unspecified whether with hypoxia or hypercapnia; I13.0 Hypertensive heart and chronic kidney disease with heart failure and stage 1 through stage 4 chronic kidney disease, or unspecified chronic kidney disease; E87.1 Hypo-osmolality and hyponatremia; D68.59 Other primary thrombophilia; I42.9 Cardiomyopathy, unspecified; I46.9 Cardiac arrest, cause unspecified; K21.9 Gastro-esophageal reflux disease without esophagitis; Z99.81 Dependence on supplemental oxygen; G62.9 Polyneuropathy, unspecified; I95.9 Hypotension, unspecified; E87.5 Hyperkalemia; D64.9 Anemia, unspecified; J44.9 Chronic obstructive pulmonary disease, unspecified; H44.9 Unspecified disorder of globe; F32.9 Major depressive disorder, single episode, unspecified; I49.9 Cardiac arrhythmia, unspecified; I20.9 Angina pectoris, unspecified; R00.0 Tachycardia, unspecified; N18.9 Chronic kidney disease, unspecified; Z88.8 Allergy status to other drugs, medicaments and biological substances; Z95.810 Presence of automatic (implantable) cardiac defibrillator; I25.2 Old myocardial infarction; Z80.8 Family history of malignant neoplasm of other organs or systems; Z82.49 Family history of ischemic heart disease and other diseases of the circulatory system
CPT/HCPCS: 36415; 36600; 71045; 80048; 80053; 80305; 81003; 82150; 82272; 82607; 82728; 82746; 82803; 82948; 83036; 83540; 83615; 83690; 83735; 83880; 84100; 84134; 84436; 84439; 84443; 84479; 84484; 85025; 85045; 85610; 85730; 87040; 87081; 87086; 92950; 93005; 94640; 94660; 99285; J0282; J1940; J2060; J2270; J7030; J7060; J7620; P9046; Q0092